=== PATIENT | male | born 1955 | race Caucasian/White ===

== ENCOUNTER 2021-08-03 02:34 | Inpatient (IN) | payer MEDICARE, OTHER ==
[~2021-08-03] VITALS: Ht 170.2 cm; Wt 79.8 kg
--- NOTE | 2021-08-03 03:40 | NUR ---
[facility] C/O OF 02/10 LEFT KNEE PAIN, PT S/P L KNEE JOINT REPLACEMENT 07/27/21. PT A0X4. L KNEE SWELLING NOTED, WARM TO TOUCH. AWAITING FOR MD COREA
--- NOTE | 2021-08-03 04:09 | NUR ---
DR SAHIL JEWELL PAGED PER DR RASCON. [phone]
[2021-08-03] MEDS ORDERED: MORPHINE SULFATE INJ 2 MG/ML DISP.SYRIN ONE (04:14)
[2021-08-03] MEDS ORDERED: MORPHINE SULFATE INJ 2 MG/ML DISP.SYRIN IV ONE (04:30)
--- NOTE | 2021-08-03 04:35 | NUR ---
BLOOD COLLECTED, SENT TO LAB
[2021-08-03 05:00] LABS: BASOPHILS # (AUTO) 0.1 K/uL (0.0-0.2); BASOPHILS % (AUTO) 0.6 % (0.0-2.0); EOSINOPHILS % (AUTO) 3.1 % (0.0-6.0); HEMATOCRIT 34 % (39-51); HEMOGLOBIN 11.1 g/dL (13.5-17.5); LYMPHOCYTES # (AUTO) 2.5 K/uL (0.8-4.8); LYMPHOCYTES % (AUTO) 22.8 % (20.0-44.0); MEAN CORPUSCULAR HGB CONC 33 g/dl (31.0-36.0); MEAN CORPUSCULAR VOLUME 85 fL (80-96); MONOCYTES % (AUTO) 9.2 % (2.0-12.0); NEUTROPHILS % (AUTO) 64.3 % (43.0-81.0); PLATELET COUNT (AUTO) 484 K/uL (150-450); RED BLOOD CELL COUNT(AUTO) 3.94 MIL/uL (4.5-6.0); WHITE BLOOD COUNT (AUTO) 10.8 K/uL (4.3-11.0)
[2021-08-03 05:12] LABS: CREATININE 0.8 mg/dL (0.6-1.3); POTASSIUM 3.9 mmol/L (3.5-5.1)
--- NOTE | 2021-08-03 05:15 | NUR ---
TRIPE WASHER AT PT'S BEDSIDE
--- NOTE | 2021-08-03 05:24 | NUR ---
COVID ANTIGEN SWAB COLLECTED AND SENT TO LAB
[2021-08-03] MEDS ORDERED: CEFAZOLIN 2 GM in IV D5W 100 ML IV SCH (05:30)
[2021-08-03] MEDS ORDERED: IV NS 0.9% 1,000 ML IV ONE (05:30)
--- NOTE | 2021-08-03 05:33 | NUR ---
VESSEL SCRAPPER HELPER AT PT'S BEDSIDE
--- NOTE | 2021-08-03 05:41 | NUR ---
XRAY DONE AT BEDSIDE
[2021-08-03] MEDS ORDERED: CEFEPIME 1 GM VIAL ONE (05:53)
[2021-08-03] MEDS ORDERED: ENOXAPARIN SODIUM 30 MG/0.3 ML DISP.SYRIN ONE (05:53)
[2021-08-03] MEDS ORDERED: VANCOMYCIN 1 GM in IV D5W 250 ML IV SCH (06:00)
[2021-08-03] MEDS ORDERED: CEFEPIME 1 GM in IV D5W 50 ML IV SCH (06:00)
[2021-08-03] MEDS ORDERED: ENOXAPARIN SODIUM 40 MG/0.4 ML DISP.SYRIN SQ SCH (06:00)
[2021-08-03] MEDS ORDERED: VANCOMYCIN 1 GM VIAL ONE (06:00)
--- NOTE | 2021-08-03 07:20 | NUR ---
Recived pt from [facility] r[facility] pt in garny respiration spont and easy LT Knee swallen tender and heard ,warm to touch with surgical stable intact and dryopen to air
--- NOTE | 2021-08-03 08:24 | NUR ---
[facility] fo medical floor bed resting and comfortabl
--- NOTE | 2021-08-03 09:18 | NUR ---
c/o pain come and thierry resping and comfortable at this time
[2021-08-03] MEDS ORDERED: MORPHINE SULFATE INJ 4 MG/ML DISP.SYRIN ONE (09:55)
[2021-08-03] MEDS ORDERED: MORPHINE SULFATE INJ 4 MG/ML DISP.SYRIN IV PRN (10:00)
--- NOTE | 2021-08-03 10:00 | NUR ---
c/o pain 10/10 on lt knee and hunger Dr. Bautista notefey and aware order was given Morphin 4mg ivp given pt responded to tx
--- NOTE | 2021-08-03 10:16 | NUR ---
ROOM GIVEN 314-1
[2021-08-03] MEDS ORDERED: ENOXAPARIN SODIUM 40 MG/0.4 ML DISP.SYRIN SQ ONE (10:30)
--- NOTE | 2021-08-03 10:36 | NUR ---
Hand off to Ora vallestate's attorney to room 315-1stable vs and condition resting pain leve 05/13
[2021-08-03] MEDS ORDERED: MAGNESIUM HYDROXIDE 30 ML UDC PO PRN (12:00)
[2021-08-03] MEDS ORDERED: Z GUARD REMEDY 4 OZ OINT TP PRN (12:00)
[2021-08-03] MEDS ORDERED: MAG HYDROX/AL HYDROX/SIMETH 30 ML UDC PO PRN (12:00)
[2021-08-03] MEDS ORDERED: ZOLPIDEM TARTRATE 5 MG TABLET PO PRN (12:00)
[2021-08-03] MEDS ORDERED: ONDANSETRON HCL/PF 4 MG/2 ML VIAL IVP PRN (12:00)
[2021-08-03] MEDS ORDERED: ACETAMINOPHEN 325 MG TABLET PO PRN (12:00)
--- NOTE | 2021-08-03 12:13 | NUR ---
[employer] REGULATION ENFORCEMENT OFFICER NOTE RECEIVED PATIENT FROM ER. PT WITH STABLE VITALS. NO A/O X 4. VERBALLY RESPONSIVE AND PLEASANT. NO S/SX OF ACUTE DISTRESS NOTED. NO SOB. PT BREATHING IS EVEN AND UNLABORED, TOLERATING WELL ON ROOM AIR. ORIENTED PT TO UNIT, STAFF AND CALL LIGHT. IV ACESS LAC#18 PATENT AND INTACT. INITIAL ASSESSMENT DONE, SKIN BODY ASSESSMENT DONE; PT NOTED WITH JENNIFER ALONG LEFT KNEE WITH BRUISES THROUGHOUT LOWER LEFT EXTREMITY. SAFETY MEASURES IN PLACE WITH BED LOCKED IN LOW POSITION WITH SIDE RAILS UP X 2. CALL LIGHT IS WITHIN REACH. WILL CONTINUE TO MONITOR PATIENT THROUGHOUT SHIFT.
--- NOTE | 2021-08-03 12:55 | NUR ---
RN NOTE CALLED [facility], SPOKE WITH NURSE CANDELARIA TO FAX OVER LIST OF PT'S MEDICATIONS.
[2021-08-03 16:00] VITALS: BP 171/88
[2021-08-03] MEDS: HYDROCODONE/APAP 10/325MG TABLET PO PRN (16:06)
[2021-08-03] MEDS ORDERED: CLOP75TA15 PO (16:31)
[2021-08-03] MEDS ORDERED: DICL2.5D EACHEYE (16:31)
[2021-08-03] MEDS ORDERED: TRAM50TA2 PO (16:31)
[2021-08-03] MEDS ORDERED: NORT10CA PO (16:31)
[2021-08-03] MEDS ORDERED: FENO160T PO (16:31)
[2021-08-03] MEDS ORDERED: LISI-768 PO (16:31)
[2021-08-03] MEDS ORDERED: LISI20TA30 PO (16:31)
[2021-08-03] MEDS ORDERED: CARV6.252 PO (16:31)
[2021-08-03] MEDS ORDERED: FINA5TAB11 PO (16:31)
[2021-08-03] MEDS ORDERED: PRAV40TA3 PO (16:31)
[2021-08-03] MEDS ORDERED: NORT25CA PO (16:31)
[2021-08-03] MEDS ORDERED: HYDR25TA4 PO (16:31)
[2021-08-03] MEDS ORDERED: FAMO20TA8 PO (16:31)
[2021-08-03] MEDS ORDERED: TRAZ-257 PO (16:31)
[2021-08-03] MEDS ORDERED: HYDR10SY16 PO (16:31)
--- NOTE | 2021-08-03 17:26 | NUR ---
RN NOTE ALL MEDICATIONS BROUGHT BY PATIENT'S FRIEND, CAIN. DOCUMENTED ALL MEDS IN MED RECON AND SENT TO PHARMACY. NOTIFIED DR. ANA JEAN TO DO MED RECON.
[2021-08-03] MEDS: MORPHINE SULFATE INJ 2 MG/ML DISP.SYRIN IV PRN ×2 (18:21→22:54)
[2021-08-03] MEDS: VANCOMYCIN 1 GM in IV D5W 250ml IV SCH (18:54)
--- NOTE | 2021-08-03 19:10 | NUR ---
RN NOTE PT AWAKE IN BED, A/OX4, PLEASANT, DENIES PAIN AT THIS TIME. DENIES SOB. IV SITE L-AC #18G INTACT/PATENT/FLUSHES WELL. PT WITH JENNIFER ON L-KNEE FROM S/P L-KNEE REPLACEMENT. SITE CLEAN WITH NO ACTIVE BLEEDING NOTED. COVERED WITH DRY GAUZE. PT IN NO ACUTE DISTRESS. SAFETY MEASURES IN PLACE. WILL CONT TO MONITOR.
[2021-08-03 20:00] VITALS: BP 152/80
--- NOTE | 2021-08-03 21:22 | NUR ---
RN NOTE SPOKE W/ RE PT'S MEDS, WITH ORDER TO CONT SAME HOME MEDS
[2021-08-03] MEDS ORDERED: TRAMADOL HCL 50 MG TABLET PO PRN (21:30)
[2021-08-03] MEDS ORDERED: NORTRIPTYLINE HCL 25 MG CAPSULE PO SCH (21:30)
[2021-08-03] MEDS: TRAZODONE 50 MG TABLET PO SCH (21:55)
[2021-08-03] MEDS: CARVEDILOL 6.25 MG TABLET PO SCH (21:55)
[2021-08-03] MEDS: ATORVASTATIN 10 MG TABLET PO SCH (21:55)
[2021-08-03] MEDS ORDERED: NORTRIPTYLINE HCL 25 MG CAPSULE ONE (23:33)
[2021-08-04] MEDS: NORTRIPTYLINE HCL 10 MG CAPSULE PO SCH ×2 (00:22→18:14)
[2021-08-04] MEDS: NORTRIPTYLINE HCL 25 MG CAPSULE PO SCH ×2 (00:22→18:17)
[2021-08-04] MEDS: HYDROCODONE/APAP 5/325MG TABLET PO PRN ×2 (00:27→08:25)
[2021-08-04 06:09] LABS: BASOPHILS # (AUTO) 0.1 K/uL (0.0-0.2); BASOPHILS % (AUTO) 0.7 % (0.0-2.0); EOSINOPHILS % (AUTO) 5.3 % (0.0-6.0); HEMATOCRIT 31 % (39-51); HEMOGLOBIN 10.5 g/dL (13.5-17.5); LYMPHOCYTES % (AUTO) 34.9 % (20.0-44.0); MEAN CORPUSCULAR HGB CONC 34 g/dl (31.0-36.0); MEAN CORPUSCULAR VOLUME 85 fL (80-96); MONOCYTES # (AUTO) 0.8 K/uL (0.1-1.30); MONOCYTES % (AUTO) 8.8 % (2.0-12.0); NEUTROPHILS # (AUTO) 4.4 K/uL (1.8-8.9); NEUTROPHILS % (AUTO) 50.3 % (43.0-81.0); PLATELET COUNT (AUTO) 463 K/uL (150-450); RED BLOOD CELL COUNT(AUTO) 3.66 MIL/uL (4.5-6.0); WHITE BLOOD COUNT (AUTO) 8.7 K/uL (4.3-11.0)
[2021-08-04] MEDS: VANCOMYCIN 1 GM in IV D5W 250ml IV SCH ×2 (06:29→20:31)
--- NOTE | 2021-08-04 06:31 | NUR ---
RN NOTE PT FOR ORTHO CONSULT WITH , SENT REMINDER TO VIA SECURE TEXT MESSAGE
[2021-08-04] MEDS: PANTOPRAZOLE 40 MG TABLET.DR PO SCH (06:38)
[2021-08-04] MEDS: MORPHINE SULFATE INJ 2 MG/ML DISP.SYRIN IV PRN ×2 (06:38→19:30)
[2021-08-04 06:40] LABS: CALCIUM, SERUM 8.4 mg/dL (8.5-10.1); CREATININE 0.8 mg/dL (0.6-1.3); MAGNESIUM 2.3 mg/dL (1.8-2.4); PHOSPHORUS 3.1 mg/dL (2.5-4.9); POTASSIUM 3.9 mmol/L (3.5-5.1)
--- NOTE | 2021-08-04 06:44 | NUR ---
RN NOTE PT RESTING IN BED, EASILY AROUSABLE. A/OX4. PT SLEPT WELL DURING THE NIGHT. NO ACUTE DISTRESS NOTED. SAFETY MEASURES MAINTAINED. ALL NEEDS ATTENDED TO.
[2021-08-04 06:55] LABS: THYROID STIMULATING HORMONE 2.258 uIU/mL (0.358-3.74)
--- NOTE | 2021-08-04 07:00 | NUR ---
MS RN OPENING NOTE PATIENT AWAKE IN BED, A/O X 4, TOLERATING WELL ON ROOM AIR WITH NO S/S OF RESPIRATORY DISTRESS. BREATHING EVEN AND UNLABORED WITH NO COMPLAINTS OF PAIN OR DISCOMFORT AT THIS TIME. L AC # 18 G INTACT, CLEAN, AND FLUSHES WELL. JENNIFER ON L KNEE DUE TO S/P L KNEE REPLACEMENT. SITE CLEAN WITH NO ACTIVE BLEEDING NOTED, COVERED IN DRY GAUZE. SAFETY MEASURES IN PLACE: BED IN LOWEST LOCKED POSITION, SIDE RAILS UP X 2, CALL LIGHT WITHIN REACH. WILL CONTINUE TO MONITOR.
[2021-08-04 08:00] VITALS: BP 151/73
[2021-08-04] MEDS: CLOPIDOGREL BISULFATE 75 MG TABLET PO SCH (08:25)
[2021-08-04] MEDS: FENOFIBRATE NANOCRYS (145 MG) 145 MG TABLET PO SCH (08:27)
[2021-08-04] MEDS: FAMOTIDINE (20 MG) 20 MG TABLET PO SCH (08:27)
[2021-08-04] MEDS: FINASTERIDE (5 MG) 5 MG TABLET PO SCH (08:28)
[2021-08-04] MEDS: CARVEDILOL 6.25 MG TABLET PO SCH ×2 (08:43→22:01)
[2021-08-04] MEDS: LISINOPRIL (20MG) 20 MG TABLET PO SCH (08:44)
[2021-08-04] MEDS: HYDROCHLOROTHIAZIDE 25 MG TABLET PO SCH (08:44)
[2021-08-04] MEDS ORDERED: ENOXAPARIN SODIUM 40 MG/0.4 ML DISP.SYRIN SQ SCH (09:00)
--- NOTE | 2021-08-04 09:00 | NUR ---
MS RN NOTE PATIENT COMPLAINT OF 8/10 LEFT LEG PAIN AND REQUESTING MEDICATION. PRN NORCO 5/320 MG PO ADMINISTERED ORDERED. WILL CONTINUE TO MONITOR FOR S/S OF PAIN.
[2021-08-04] MEDS ORDERED: ATOR10TA PO (10:10)
[2021-08-04] MEDS ORDERED: FENO145T21 PO (10:10)
[2021-08-04] MEDS ORDERED: ACET-2605 PO (10:10)
[2021-08-04] MEDS ORDERED: SENN-261 PO (10:10)
[2021-08-04] MEDS ORDERED: ACET-868 PO ×2 (10:10→10:11)
[2021-08-04] MEDS ORDERED: BISA10SU11 RC (10:10)
[2021-08-04] MEDS ORDERED: LORA10TA7 PO (10:10)
[2021-08-04] MEDS ORDERED: OXYC1TAB12 PO (10:10)
[2021-08-04] MEDS ORDERED: NA P133E RC (10:10)
[2021-08-04] MEDS ORDERED: MULT-447 PO (10:10)
[2021-08-04] MEDS ORDERED: MAGN400O6 PO (10:10)
[2021-08-04] MEDS ORDERED: APIX2.5T PO (10:11)
--- NOTE | 2021-08-04 13:22 | NUR ---
MS RN NOTE PATIENT COMPLAINT OF 10/10 L ANKLE PAIN AND REQUESTING MEDICATION. PRN ULTRAM 50 MG PO ADMINISTERED ORDERED. WILL CONTINUE TO MONITOR FOR S/S OF PAIN.
[2021-08-04 16:00] VITALS: BP 152/79
[2021-08-04] MEDS: HYDROCODONE/APAP 10/325MG TABLET PO PRN ×2 (18:12→21:52)
--- NOTE | 2021-08-04 19:00 | NUR ---
MS RN CLOSING NOTE PATIENT AWAKE IN BED, A/O X 4, TOLERATING WELL ON ROOM AIR WITH NO S/S OF RESPIRATORY DISTRESS. BREATHING EVEN AND UNLABORED WITH COMPLAINT OF TOLERABLE 3/10 LEFT LEG PAIN. IV ACCESS REMOVED DUE TO PATIENT DISCOMFORT, WILL ENDORSE TO MERGERS AND ACQUISITIONS MANAGER FOR NEW IV INSERT. JENNIFER ON L KNEE DUE TO S/P L KNEE REPLACEMENT. SURGICAL SITE IS CLEAN WITH NO ACTIVE BLEEDING NOTED, COVERED IN DRY GAUZE. SAFETY MEASURES IN PLACE: BED IN LOWEST LOCKED POSITION, SIDE RAILS UP X 2, CALL LIGHT WITHIN REACH. ALL NEEDS MET. WILL ENDORSE TO MERGERS AND ACQUISITIONS MANAGER FOR [place].
--- NOTE | 2021-08-04 19:10 | NUR ---
CALLED LAB TO F/U ON VANCO TROUGH DRAW, SAID SOMEBODY IS ON THE WAY
--- NOTE | 2021-08-04 19:40 | NUR ---
VANCO TROUGH DRAWN
[2021-08-04 20:00] VITALS: BP 190/76
[2021-08-04] MEDS: TRAZODONE 50 MG TABLET PO SCH (21:48)
[2021-08-04] MEDS: ATORVASTATIN 10 MG TABLET PO SCH (21:48)
[2021-08-05] MEDS: VANCOMYCIN 1 GM in IV D5W 250ml IV SCH (06:42)
[2021-08-05] MEDS: PANTOPRAZOLE 40 MG TABLET.DR PO SCH (06:48)
[2021-08-05] MEDS: MORPHINE SULFATE INJ 2 MG/ML DISP.SYRIN IV PRN (06:48)
--- NOTE | 2021-08-05 07:00 | NUR ---
RN NOTE PT RESTING IN BED, EASILY AROUSABLE TO STIMULI. PAIN MANAGED WITH PRN MORPHINE AND PRN NORCO AND EFFECTIVE. PT IN NO ACUTE DISTRESS. ALL NEEDS ATTENDED TO. SAFETY MEASURES MAINTAINED.
[2021-08-05 07:11] LABS: BASOPHILS # (AUTO) 0.1 K/uL (0.0-0.2); BASOPHILS % (AUTO) 0.7 % (0.0-2.0); EOSINOPHILS % (AUTO) 5.9 % (0.0-6.0); HEMATOCRIT 31 % (39-51); HEMOGLOBIN 10.5 g/dL (13.5-17.5); LYMPHOCYTES % (AUTO) 30.5 % (20.0-44.0); MEAN CORPUSCULAR HGB CONC 34 g/dl (31.0-36.0); MEAN CORPUSCULAR VOLUME 83 fL (80-96); MONOCYTES # (AUTO) 0.7 K/uL (0.1-1.30); MONOCYTES % (AUTO) 7.1 % (2.0-12.0); NEUTROPHILS # (AUTO) 5.5 K/uL (1.8-8.9); NEUTROPHILS % (AUTO) 55.8 % (43.0-81.0); PLATELET COUNT (AUTO) 474 K/uL (150-450); RED BLOOD CELL COUNT(AUTO) 3.76 MIL/uL (4.5-6.0); WHITE BLOOD COUNT (AUTO) 9.8 K/uL (4.3-11.0)
--- NOTE | 2021-08-05 07:23 | NUR ---
MS RN OPENING NOTE PATIENT AWAKE IN BED, A/O X 4, ABLE TO MAKE NEEDS KNOWN. ON ROOM AIR, TOLERATING WELL WITH NO S/S OF RESPIRATORY DISTRESS. BREATHING EVEN AND UNLABORED. DENIES PAIN OR DISCOMFORT AT THIS TIME. IV ACCESS ON LAC G #18 SALINE LOCK, INTACT AND FLUSHING WELL. JENNIFER ON L KNEE DUE TO S/P L KNEE REPLACEMENT, SITE INTACT WITH NO BLEEDING NOTED. KEPT LEG ELEVATED TO HELP WITH SWELLING. SAFETY MEASURES IN PLACE: BED IN LOWEST LOCKED POSITION, SIDE RAILS UP X 2, CALL LIGHT WITHIN REACH. WILL CONTINUE TO MONITOR AND WITH PLAN OF CARE.
[2021-08-05 08:00] VITALS: BP 126/86
[2021-08-05 08:52] LABS: ALBUMIN 2.9 g/dL (3.4-5.0); BILIRUBIN,TOTAL 0.5 mg/dL (0.2-1.0); CALCIUM, SERUM 9.1 mg/dL (8.5-10.1); CREATININE 0.7 mg/dL (0.6-1.3); PHOSPHORUS 3.6 mg/dL (2.5-4.9); TOTAL PROTEIN, SERUM 6.7 g/dL (6.4-8.2)
[2021-08-05] MEDS: FENOFIBRATE NANOCRYS (145 MG) 145 MG TABLET PO SCH (09:22)
[2021-08-05] MEDS: FINASTERIDE (5 MG) 5 MG TABLET PO SCH (09:22)
[2021-08-05] MEDS: CLOPIDOGREL BISULFATE 75 MG TABLET PO SCH (09:23)
[2021-08-05] MEDS: HYDROCHLOROTHIAZIDE 25 MG TABLET PO SCH (09:23)
[2021-08-05] MEDS: LISINOPRIL (20MG) 20 MG TABLET PO SCH (09:24)
[2021-08-05] MEDS: FAMOTIDINE (20 MG) 20 MG TABLET PO SCH (09:24)
[2021-08-05] MEDS: HYDROCODONE/APAP 10/325MG TABLET PO PRN ×2 (09:25→15:20)
[2021-08-05] MEDS: CARVEDILOL 6.25 MG TABLET PO SCH (09:31)
--- NOTE | 2021-08-05 12:18 | NUR ---
WOUND CARE CONSULT: PT PRESENTS WITH DISCOLORATION TO LEFT LOWER EXTREMITY AND CLOSED KNEE INCISION, NO DRAINAGE, PRESENT ON ADMISSION. DEFER TO SURGEON ON CASE. RECOMMENDATIONS MADE FOR SKIN PROTECTION AND LEG ELEVATION DISCUSSED WITH NURSING STAFF. MD IN AGREEMENT WITH PLAN OF CARE.
[2021-08-05 16:00] VITALS: BP 130/73
[2021-08-05] MEDS: NORTRIPTYLINE HCL 25 MG CAPSULE PO SCH (17:28)
[2021-08-05] MEDS: NORTRIPTYLINE HCL 10 MG CAPSULE PO SCH (17:28)
--- NOTE | 2021-08-05 17:32 | NUR ---
RN NOTES PT FOR DISCHARGE TO [facility] TODAY, P/U TIME IS 1800 BY [facility]. REPORT GIVEN VIA TELEPHONE TO JOSE M GALVAN CAFETERIA AIDE. SHE STATED THAT PT WILL GO TO [facility].
--- NOTE | 2021-08-05 19:01 | NUR ---
PROFESSOR OF SPORT MANAGEMENT NOTES PT DISCHARGED TO [facility] IN STABLE CONDITION. A/O X4 AND ABLE TO MAKE NEEDS KNOWN. V/S TAKEN STABLE AND RECORDED. ON ROOM AIR, BREATHING EVEN AND UNLABORED WITH NO SIGN OF RESPIRATORY DISTRESS. LEFT KNEE WITH JENNIFER DUE TO S/P LEFT KNEE REPLACEMENT INTACT WITH SLIGHT SWELLING, NO BLEEDING NOTED. ENCOURAGED PT TO ELEVATE LEFT KNEE TOLERATED TO HELP REDUCE SWELLING. PHOTO TAKEN AND FILED ON HIS CHART. IV ACCESS ON LAC G #18 REMOVED WITH NO ACTIVE BLEEDING NOTED. DRY PRESSURE DRESSING APPLIED AT SITE. ALL BELONGINGS ACCOUNTED FOR AND PT SIGNED RPost LIST. HOME MEDICATIONS PICKED UP AT THE PHARMACY AND GIVEN TO PATIENT. HEALTH TEACHINGS/DISCHARGED INSTRUCTIONS GIVEN TO PT WITH PT VERBALIZING UNDERSTANDING OF DC INSTRUCTIONS. PT LEFT THE UNIT VIA [facility] ACCOMPANIED BY 3 EMT'S FROM [facility] UN[address] AT 1900. MD AND CHARGED NURSE AWARE OF DISCHARGE.
== END 2021-08-05 19:05 | DRG 921 ==
LOC: ER 02:47 → TRANSITION 09:36 → TELE 12:04 → MED 12:18
DX: M96.840 Postprocedural hematoma of a musculoskeletal structure following a musculoskeletal system procedure (principal); Y83.8 Other surgical procedures as the cause of abnormal reaction of the patient, or of later complication, without mention of misadventure at the time of the procedure; Y92.129 Unspecified place in nursing home as the place of occurrence of the external cause; G89.18 Other acute postprocedural pain; K21.9 Gastro-esophageal reflux disease without esophagitis; Z20.822 Contact with and (suspected) exposure to COVID-19; I25.2 Old myocardial infarction; I25.10 Atherosclerotic heart disease of native coronary artery without angina pectoris; Z96.652 Presence of left artificial knee joint; I10 Essential (primary) hypertension
CPT/HCPCS: 36415; 73564-TC; 73610-TC; 73630-TC; 80048-TC; 80053-TC; 80061-TC; 80202-TC; 83735-TC; 84100-TC; 84443-TC; 85025-TC; 87081-TC; 93971-TC; 97110-TC; 97116-TC; 97530-TC; A6253; C9803; G0378; J0692; J1650; J2270; J3370; J7030; J7050; J7060